=== PATIENT | male | born 1955 | race Caucasian/White ===

== ENCOUNTER 2016-12-10 10:30 | Emergency (ER) | payer MEDICARE ==
[~2016-12-10] VITALS: Ht 188 cm; Wt 110.1 kg
[~2016-12-10 10:30] MED LIST: AMOX1TAB64 PO; ASPI325T4 PO; FURO80TA77 PO; METO25TA4 PO; METO50TA3 PO; METO50TA82 PO; POTA20TA91 PO
[2016-12-10 10:40] VITALS: BP 134/79
[2016-12-10] MEDS ORDERED: SODIUM CHLORIDE FLUSH 10ML SYR IVF ONE (11:30)
[2016-12-10 12:34] LABS: HEMOGLOBIN 14.7 g/dL (13.7-18.0)
[2016-12-10 12:48] LABS: BLOOD UREA NITROGEN 17 mg/dL (7-18)
== END 2016-12-10 12:47 ==
LOC: ED 12:37
DX: M79.662 Pain in left lower leg (principal); M79.89 Other specified soft tissue disorders; I11.0 Hypertensive heart disease with heart failure; I50.9 Heart failure, unspecified; I25.10 Atherosclerotic heart disease of native coronary artery without angina pectoris; I25.2 Old myocardial infarction; E11.9 Type 2 diabetes mellitus without complications; F17.200 Nicotine dependence, unspecified, uncomplicated; Z89.511 Acquired absence of right leg below knee; Z86.718 Personal history of other venous thrombosis and embolism; Z95.0 Presence of cardiac pacemaker; Z86.711 Personal history of pulmonary embolism
CPT/HCPCS: 36415; 71020; 80048; 82040; 83605; 83880; 85025; 87040

== ENCOUNTER 2016-12-13 00:51 | Inpatient (IN) | payer MEDICARE ==
[~2016-12-13] VITALS: Ht 188 cm; Wt 110.0 kg
[2016-12-13] MEDS ORDERED: AMPICILLIN/SULBACTAM 3 GM in SODIUM CHLORIDE 0.9% 100 ML IVPB ONE (01:30)
[2016-12-13] MEDS ORDERED: SODIUM CHLORIDE 0.9% 1,000ML IVBOLUS ONE (01:30)
[2016-12-13] MEDS ORDERED: HYDROcodone/APAP 5/325 TABLET PO ONE (01:30)
[2016-12-13] MEDS ORDERED: HYDROcodone/APAP 5/325 TABLET ONE (03:53)
[2016-12-13 04:24] LABS: HEMOGLOBIN 13.8 g/dL (13.7-18.0)
[2016-12-13 04:36] LABS: BLOOD UREA NITROGEN 20 mg/dL (7-18)
[2016-12-13 04:41] LABS: ASPARTATE AMINO TRANSFERASE 11 U/L (15-37)
[2016-12-13] MEDS ORDERED: BISACODYL 10 MG SUPP PR PRN (05:30)
[2016-12-13] MEDS ORDERED: OXYcodone IR 5MG TABLET PO PRN (05:30)
[2016-12-13] MEDS ORDERED: ONDANSETRON 2MG/ML, 2ML IVP PRN (05:30)
[2016-12-13] MEDS ORDERED: DOCUSATE 100 MG CAPSULE PO PRN (05:30)
[2016-12-13] MEDS ORDERED: ACETAMINOPHEN 325 MG TABLET PO PRN (05:30)
[2016-12-13] MEDS ORDERED: POLYETHYLENE GLYCOL 17 GM PACKET PO PRN (05:30)
[2016-12-13] MEDS ORDERED: ZOLPIDEM 5MG TABLET PO PRN (05:30)
[2016-12-13] MEDS ORDERED: HYDROmorphone 1 MG/ML, 1ML ONE (06:02)
[2016-12-13] MEDS: HYDROmorphone 2 MG/ML, 1ML IV PRN ×6 (06:07→20:56)
[2016-12-13] MEDS: CEFTAROLINE 600 MG in SODIUM CHLORIDE 0.9% 100 ML IV SCH ×2 (06:29→17:34)
[2016-12-13] MEDS: INSULIN REGULAR 100 UNITS/ML, 3ML VIAL SQ-INSULIN SCH ×4 (07:00→21:31)
[2016-12-13] MEDS: SODIUM CHLORIDE FLUSH 10ML SYR IVF SCH ×2 (08:54→21:00)
[2016-12-13] MEDS: ENOXAPARIN 40 MG/0.4 ML SQ SCH (08:55)
[2016-12-13] MEDS: FUROSEMIDE 80 MG TABLET PO SCH (08:55)
[2016-12-13] MEDS: ASPIRIN 325 MG TABLET PO SCH (08:55)
[2016-12-13] MEDS: POTASSIUM CHLORIDE 20 MEQ TAB.ER.PRT PO SCH (08:55)
[2016-12-13] MEDS: METOPROLOL TARTRATE 50 MG TABLET PO SCH ×2 (08:59→21:00)
[2016-12-13 09:01] VITALS: BP 126/74
[2016-12-13 12:15] VITALS: BP 105/65
[2016-12-13 15:25] VITALS: BP 111/74
[2016-12-13 19:25] VITALS: BP 95/62
[2016-12-14] MEDS: HYDROmorphone 2 MG/ML, 1ML IV PRN ×8 (00:19→21:58)
[2016-12-14 01:01] VITALS: BP 104/70
[2016-12-14] MEDS: CEFTAROLINE 600 MG in SODIUM CHLORIDE 0.9% 100 ML IV SCH ×2 (05:50→17:06)
[2016-12-14] MEDS: INSULIN REGULAR 100 UNITS/ML, 3ML VIAL SQ-INSULIN SCH ×4 (07:00→20:46)
[2016-12-14] MEDS: METOPROLOL TARTRATE 50 MG TABLET PO SCH ×2 (08:14→20:47)
[2016-12-14] MEDS: ENOXAPARIN 40 MG/0.4 ML SQ SCH (08:27)
[2016-12-14] MEDS: POTASSIUM CHLORIDE 20 MEQ TAB.ER.PRT PO SCH (08:27)
[2016-12-14] MEDS: FUROSEMIDE 80 MG TABLET PO SCH (08:27)
[2016-12-14] MEDS: ASPIRIN 325 MG TABLET PO SCH (08:29)
[2016-12-14] MEDS: SODIUM CHLORIDE FLUSH 10ML SYR IVF SCH ×2 (08:29→21:00)
[2016-12-14 09:00] VITALS: BP 101/67
[2016-12-14 14:24] VITALS: BP 105/61
[2016-12-14 20:28] VITALS: BP 114/67
[2016-12-15] MEDS: HYDROmorphone 2 MG/ML, 1ML IV PRN ×4 (01:44→12:12)
[2016-12-15 02:07] VITALS: BP 109/52
[2016-12-15] MEDS: CEFTAROLINE 600 MG in SODIUM CHLORIDE 0.9% 100 ML IV SCH ×2 (06:01→16:52)
[2016-12-15 08:18] VITALS: BP 100/64
[2016-12-15] MEDS: METOPROLOL TARTRATE 50 MG TABLET PO SCH ×2 (08:37→21:00)
[2016-12-15] MEDS: INSULIN REGULAR 100 UNITS/ML, 3ML VIAL SQ-INSULIN SCH ×4 (09:05→20:00)
[2016-12-15] MEDS: ASPIRIN 325 MG TABLET PO SCH (09:06)
[2016-12-15] MEDS: FUROSEMIDE 80 MG TABLET PO SCH (09:06)
[2016-12-15] MEDS: POTASSIUM CHLORIDE 20 MEQ TAB.ER.PRT PO SCH (09:06)
[2016-12-15] MEDS: ENOXAPARIN 40 MG/0.4 ML SQ SCH (09:06)
[2016-12-15] MEDS: SODIUM CHLORIDE FLUSH 10ML SYR IVF SCH ×2 (09:07→21:00)
[2016-12-15] MEDS: GABAPENTIN 100 MG CAPSULE PO SCH (21:00)
[2016-12-16] MEDS: CEFTAROLINE 600 MG in SODIUM CHLORIDE 0.9% 100 ML IV SCH ×2 (05:11→17:03)
[2016-12-16] MEDS: INSULIN REGULAR 100 UNITS/ML, 3ML VIAL SQ-INSULIN SCH ×5 (07:00→20:44)
[2016-12-16] MEDS: SODIUM CHLORIDE FLUSH 10ML SYR IVF SCH ×2 (07:44→20:54)
[2016-12-16] MEDS: POTASSIUM CHLORIDE 20 MEQ TAB.ER.PRT PO SCH ×2 (07:44→08:52)
[2016-12-16] MEDS: METOPROLOL TARTRATE 50 MG TABLET PO SCH ×3 (07:44→20:55)
[2016-12-16] MEDS: ASPIRIN 325 MG TABLET PO SCH ×2 (07:44→08:53)
[2016-12-16] MEDS: FUROSEMIDE 80 MG TABLET PO SCH ×2 (07:44→09:55)
[2016-12-16] MEDS: ENOXAPARIN 40 MG/0.4 ML SQ SCH ×2 (07:45→08:52)
[2016-12-16] MEDS: GABAPENTIN 100 MG CAPSULE PO SCH ×4 (07:45→20:54)
[2016-12-16 09:09] VITALS: BP 119/73
[2016-12-16 09:26] LABS: HEMOGLOBIN 14.8 g/dL (13.7-18.0)
[2016-12-16 09:37] LABS: BLOOD UREA NITROGEN 27 mg/dL (7-18)
[2016-12-16 09:38] LABS: ASPARTATE AMINO TRANSFERASE 8 U/L (15-37)
[2016-12-16 16:04] VITALS: BP 125/74
[2016-12-17 02:18] VITALS: BP 103/70
[2016-12-17] MEDS: CEFTAROLINE 600 MG in SODIUM CHLORIDE 0.9% 100 ML IV SCH ×2 (05:24→17:04)
[2016-12-17 07:00] VITALS: BP 115/64
[2016-12-17] MEDS: ASPIRIN 325 MG TABLET PO SCH (09:00)
[2016-12-17] MEDS: ENOXAPARIN 40 MG/0.4 ML SQ SCH ×2 (09:00→09:43)
[2016-12-17] MEDS: SODIUM CHLORIDE FLUSH 10ML SYR IVF SCH ×2 (09:00→19:56)
[2016-12-17] MEDS: POTASSIUM CHLORIDE 20 MEQ TAB.ER.PRT PO SCH (09:42)
[2016-12-17] MEDS: GABAPENTIN 100 MG CAPSULE PO SCH ×3 (09:43→19:56)
[2016-12-17] MEDS: METOPROLOL TARTRATE 50 MG TABLET PO SCH ×2 (09:43→19:56)
[2016-12-17] MEDS: INSULIN REGULAR 100 UNITS/ML, 3ML VIAL SQ-INSULIN SCH ×4 (09:43→19:56)
[2016-12-17] MEDS: FUROSEMIDE 80 MG TABLET PO SCH (09:43)
[2016-12-17 14:44] VITALS: BP 103/75
[2016-12-18 02:45] VITALS: BP 106/54
[2016-12-18] MEDS: CEFTAROLINE 600 MG in SODIUM CHLORIDE 0.9% 100 ML IV SCH (05:35)
[2016-12-18] MEDS: INSULIN REGULAR 100 UNITS/ML, 3ML VIAL SQ-INSULIN SCH (07:00)
[2016-12-18] MEDS: GABAPENTIN 100 MG CAPSULE PO SCH (09:00)
[2016-12-18] MEDS: ENOXAPARIN 40 MG/0.4 ML SQ SCH (09:00)
[2016-12-18] MEDS: ASPIRIN 325 MG TABLET PO SCH (09:00)
[2016-12-18] MEDS: FUROSEMIDE 80 MG TABLET PO SCH (09:00)
[2016-12-18] MEDS: SODIUM CHLORIDE FLUSH 10ML SYR IVF SCH (09:00)
[2016-12-18] MEDS: POTASSIUM CHLORIDE 20 MEQ TAB.ER.PRT PO SCH (09:00)
[2016-12-18] MEDS: METOPROLOL TARTRATE 50 MG TABLET PO SCH (09:00)
== END 2016-12-18 11:42 | disposition left against medical advice (07) | DRG 603 ==
LOC: ED 04:13 → EDIP 05:03 → 3NW 05:48 → 3NE 13:48
DX: L03.116 Cellulitis of left lower limb (principal); E44.1 Mild protein-calorie malnutrition; I50.32 Chronic diastolic (congestive) heart failure; I47.1 Supraventricular tachycardia; R78.81 Bacteremia; I11.0 Hypertensive heart disease with heart failure; E11.65 Type 2 diabetes mellitus with hyperglycemia; I87.8 Other specified disorders of veins; M72.9 Fibroblastic disorder, unspecified; E11.69 Type 2 diabetes mellitus with other specified complication; I73.9 Peripheral vascular disease, unspecified; I25.2 Old myocardial infarction; Z68.31 Body mass index [BMI] 31.0-31.9, adult; Z89.511 Acquired absence of right leg below knee; Z90.49 Acquired absence of other specified parts of digestive tract; Z88.5 Allergy status to narcotic agent; Z91.19 Patient's noncompliance with other medical treatment and regimen
CPT/HCPCS: 36415; 78315; 80053; 82962; 83605; 84145; 85025; 85610; 85730; 87040; 87077; 96365; 96375; J0295; J0712; J1170; J1650; J1815; A9503; J7030

== ENCOUNTER 2019-09-18 07:17 | Emergency (ER) | payer MEDICAID, MEDICARE ==
[~2019-09-18 07:17] MED LIST changes: +ASPI325T17 PO; -ASPI325T4 PO; +ATOR40TA78 PO; +ESCI10TA PO; +METF500T17 PO; -METO50TA3 PO; +METO50TA6 PO; +NITR0.6T4 SL
--- NOTE | 2019-09-18 07:37 | NUR ---
pt brought in by [facility] for chest pain and le swelling. pt placed in [facility] and provider to bedside. requested pt remove pants to evaluate leg, pt refusing stating "you're just going to do an ultrasound and some shit and charge me. i worked my ass off my whole life to get good credit and you're going to charge me", provider notified pt we need to be able to evaluate pt in order to treat but pt can leave and refuse treatment if he would like. pt then wanted to leave, signed AMA paper and then removed pants stating "fine, here". provider and md to bedside, pt then yelling again stating "what are you going to do", provided explained tests and labs needed and pt then stated again "i have good credit and you just order things and make me in debt, you all do this". pt asked if he would like evaluation or not and he stated, "no, I'm going to leave". pt educated on risks of leaving and need for evaluation by MD and pt states he understands. Pt removed from monitor and escorted to leave.
--- NOTE | 2019-09-18 07:46 | NUR ---
PT OUT THE DOOR [phone]. PT REFUSING MEDICAL ASSISTANCE AND JUST WANTS TO GO TO THE BUS STOP. PT ADVISED TO RETURN OR CALL 911 AGAIN IF CONDITION WORSENS OR HE CHANGES HIS MIND.
== END 2019-09-18 07:49 | disposition left against medical advice (07) ==
LOC: ED 07:43
DX: R07.2 Precordial pain (principal); I25.10 Atherosclerotic heart disease of native coronary artery without angina pectoris; E11.9 Type 2 diabetes mellitus without complications; I11.0 Hypertensive heart disease with heart failure; I50.9 Heart failure, unspecified; E78.5 Hyperlipidemia, unspecified; Z86.718 Personal history of other venous thrombosis and embolism; Z95.0 Presence of cardiac pacemaker; Z88.6 Allergy status to analgesic agent
CPT/HCPCS: 93005; 99283